=== PATIENT | female | born 1985 | race American Indian/Alaskan Native ===

== ENCOUNTER 2019-05-19 02:44 | Emergency (ER) | payer MEDICAID ==
[2019-05-19 02:58] VITALS: BP 130/85
[2019-05-19] MEDS ORDERED: SODIUM CHLORIDE 0.9% 1000 ML 1,000 ML IV ONE (03:50)
[2019-05-19] MEDS ORDERED: ONDANSETRON 4 MG/2 ML INJ IV STA (03:50)
[2019-05-19 04:21] LABS: Basophils # (Auto) 0.1 K/mm3 (0.0-0.1); Basophils % (Auto) 1.6 % (0.0-1.8); Eosinophils # (Auto) 0.1 K/mm3 (0.0-0.4); Eosinophils % (Auto) 1.4 % (0.0-4.3); Hematocrit 36.9 % (30.3-42.9); Hemoglobin 12.6 gm/dl (10.1-14.3); Lymphocytes # (Auto) 1.5 K/mm3 (1.2-5.4); Lymphocytes % (Auto) 31.6 % (13.4-35.0); Mean Corpuscular HGB Conc 34 % (30-34); Mean Corpuscular Volume 89 fl (79-97); Monocytes # (Auto) 0.4 K/mm3 (0.0-0.8); Monocytes % (Auto) 7.5 % (0.0-7.3); Platelet Count 386 K/mm3 (140-440); Red Blood Count 4.12 M/mm3 (3.65-5.03); Red Cell Distribution Width 13.8 % (13.2-15.2)
[2019-05-19 04:32] LABS: BUN/Creatinine Ratio 10; Blood Urea Nitrogen 6 mg/dL (7-17); Calcium 9.4 mg/dL (8.4-10.2); Hemolysis Index 18
[2019-05-19] MEDS ORDERED: diphenhydrAMINE 50 MG/ML VIAL IV STA (05:58)
[2019-05-19] MEDS ORDERED: METOCLOPRAMIDE 10 MG/2 ML INJ IV STA (05:58)
--- NOTE | 2019-05-19 07:17 | Emergency Department Report ---
ED General Adult HPI - General Chief complaint: Dizziness Stated complaint: DIZZY NAUSEA CHILLS Time Seen by Provider: 05/19/19 03:50 Source: patient Mode of arrival: Ambulatory Limitations: No Limitations - History of Present Illness Initial comments: 33-year-old obese Afro-Kitt[place] female presents emergency department complaining of a few day history of nausea and associated with dizziness. Patient states she has a 10-year IUD and reports no abdominal pain, no fever, chills, sweats no chest pain or palpitations no hemoptysis no hematemesis no hematochezia. States that the symptoms get worse when she goes from sit to stand she reports no new medications no ear pain no no tinnitus. -: Gradual Radiation: non-radiation Consistency: constant Improves with: none Worsens with: none Associated Symptoms: denies other symptoms, nausea/vomiting. denies: confusion, chest pain, cough, diaphoresis, loss of appetite, malaise, syncope - Related Data Previous Rx's Medication Instructions Recorded Last Taken Type Pantoprazole [Protonix TAB] 40 mg PO BID #30 tablet 02/01/18 Unknown Rx traMADoL [Ultram] 50 mg PO Q6HR PRN #14 tablet 02/01/18 Unknown Rx Doxylamine Succinate/Vit B6 1 each PO Q8HR #20 tablet. 05/19/19 Unknown Rx [Soni Chang 10-10 mg Tablet] Allergies Allergy/AdvReac Type Severity Reaction Status Date / Time No Known Allergies Allergy Unverified 01/30/18 01:30 ED Review of Systems ROS: Stated complaint: DIZZY NAUSEA CHILLS Other details as noted in HPI Comment: All other systems reviewed and negative ED Past Medical Hx - Past Medical History Previous Medical History?: No Hx Congestive Heart Failure: No Hx Diabetes: No Hx Asthma: No Hx COPD: No Hx HIV: No - Surgical History Past Surgical History?: No - Social History Smoking Status: Never Smoker Substance Use Type: None - Medications Home Medications: Home Medications Medication Instructions Recorded Confirmed Last Taken Type Pantoprazole [Protonix TAB] 40 mg PO BID #30 tablet 02/01/18 Unknown Rx traMADoL [Ultram] 50 mg PO Q6HR PRN #14 tablet 02/01/18 Unknown Rx Doxylamine Succinate/Vit B6 1 each PO Q8HR #20 tablet. 05/19/19 Unknown Rx [Soni Chang 10-10 mg Tablet] ED Physical Exam - General Limitations: No Limitations General appearance: alert, in no apparent distress - Head Head exam: Present: atraumatic, normocephalic - Eye Eye exam: Present: normal appearance, PERRL, EOMI Pupils: Present: normal accommodation - ENT ENT exam: Present: normal exam, mucous membranes moist - Neck Neck exam: Present: normal inspection - Respiratory Respiratory exam: Present: normal lung sounds bilaterally. Absent: respiratory distress, rhonchi, stridor, chest wall tenderness - Cardiovascular Cardiovascular Exam: Present: regular rate, normal rhythm. Absent: systolic murmur, diastolic murmur, rubs, gallop - GI/Abdominal GI/Abdominal exam: Present: soft, normal bowel sounds. Absent: distended, tenderness, guarding, rebound, diminished bowel sounds, hypoactive bowel sounds - Extremities Exam Extremities exam: Present: normal inspection, full ROM, normal capillary refill. Absent: tenderness, pedal edema - Back Exam Back exam: Present: normal inspection - Neurological Exam Neurological exam: Present: alert, oriented X3, CN II-XII intact, normal gait, reflexes normal. Absent: motor sensory deficit - Psychiatric Psychiatric exam: Present: normal affect, normal mood - Skin Skin exam: Present: warm, dry, intact, normal color. Absent: rash ED Course Vital Signs 05/19/19 02:53 Temperature 97.8 F Pulse Rate 85 Respiratory 16 Rate Blood Pressure 130/85 O2 Sat by Pulse 97 Oximetry ED Medical Decision Making - Lab Data Result diagrams: 05/19/19 03:57 05/19/19 03:57 - Medical Decision Making 33-year-old Kitt[place] female presents emerged department complaining of dizziness and nausea. She was found to be orthostatic positive and was treated with 1 L of normal saline which did significantly improve her symptomology but did not quite resolve all the nausea. She initially was tried on on Zofran she did have an IUD in the end of the was not a possibility. We did move forward with Reglan and Benadryl which significantly improved her nausea and since symptoms and move forward with a serum test which was discovered to be positive. This was a extreme shock to Ms. Huang but we did discuss in detail the need to follow-up with an ELECTRONIC TECHNOLOGIST as there are several complications that could arise from in this capacity. She is alert and oriented x3 and of sound judgment does completely understand the risk and has plans on following up with an ELECTRONIC TECHNOLOGIST in the next 1 to 2 days. Currently she is pain-free but has been advised on when to return to emergency department versus ELECTRONIC TECHNOLOGIST. Critical care attestation.: If time is entered above; I have spent that time in minutes in the direct care of this critically ill patient, excluding procedure time. ED Disposition Clinical Impression: Orthostatic dizziness, Nausea, as incidental finding Disposition: - TO HOME OR SELFCARE Is pt being admited?: No Does the pt Need Aspirin: No Condition: Stable Instructions: Acute Nausea and Vomiting (ED), Hypotension (ED) Additional Instructions: Elongated discussion with patient on the positive test and the fact of her IUD she is asymptomatic at current but she does understand the need to follow-up with normal GB Y and so that she can properly manage her current status Prescriptions: Doxylamine Succinate/Vit B6 [Soni Chang 10-10 mg Tablet] 1 each PO Q8HR #20 tablet. Referrals: SAIRA GERONIMO MD [Staff Physician] - 3-5 Days PRIMARY CARE, [Primary Care Provider] - 3-5 Days [facility] [Provider Group] - 3-5 Days
== END 2019-05-19 07:44 | disposition home or self-care (01) ==
LOC: ED 02:44
DX: R42 Dizziness and giddiness (principal); R11.0 Nausea; R68.83 Chills (without fever); Z79.899 Other long term (current) drug therapy; Z33.1 Pregnant state, incidental
CPT/HCPCS: 36415; 80048; 84703; 85025; 96361; 96374; 96375; 99283; J1200; J2405; J2765; J7030

== ENCOUNTER 2020-03-20 11:57 | Emergency (ER) | payer MEDICAID ==
[2020-03-20 12:15] VITALS: BP 151/103
[2020-03-20 13:26] LABS: Basophils # (Auto) 0.1 K/mm3 (0.0-0.1); Basophils % (Auto) 1.5 % (0.0-1.8); Eosinophils # (Auto) 0.1 K/mm3 (0.0-0.4); Eosinophils % (Auto) 2.1 % (0.0-4.3); Hematocrit 37.6 % (30.3-42.9); Hemoglobin 12.5 gm/dl (10.1-14.3); Lymphocytes # (Auto) 1.1 K/mm3 (1.2-5.4); Lymphocytes % (Auto) 23.1 % (13.4-35.0); Mean Corpuscular HGB Conc 33 % (30-34); Mean Corpuscular Volume 83 fl (79-97); Monocytes # (Auto) 0.2 K/mm3 (0.0-0.8); Platelet Count 463 K/mm3 (140-440); Red Blood Count 4.54 M/mm3 (3.65-5.03); Red Cell Distribution Width 16.7 % (13.2-15.2)
[2020-03-20 13:56] LABS: Alanine Aminotransferase 20 units/L (7-56); Albumin 3.8 g/dL (3.9-5); Blood Urea Nitrogen 9 mg/dL (7-17); Hemolysis Index 5
[2020-03-20 13:58] LABS: BUN/Creatinine Ratio 15
--- NOTE | 2020-03-20 14:29 | Event Note ---
ED Screening Note ED Screening Note: states has a hx of gallstones never followed up with general surgery RUQ pain N/V no diarrhea no fever no urinary symptoms no allergies to meds LNMP: 03/13/2020 This initial assessment/diagnostic orders/clinical plan/treatment(s) is/are subject to change based on patients health status, clinical progression and re- assessment by fellow clinical providers in the ED. Further treatment and workup at subsequent clinical providers discretion. Patient/guardian urged not to elope from the ED as their condition may be serious if not clinically assessed and managed. Initial orders include: labs, UA, urine preg, US abd
== END 2020-03-20 15:00 | disposition left against medical advice (07) ==
LOC: ED 11:57
DX: R10.11 Right upper quadrant pain (principal); Z53.21 Procedure and treatment not carried out due to patient leaving prior to being seen by health care provider
CPT/HCPCS: 36415; 80053; 83690; 85025

== ENCOUNTER 2021-05-11 04:10 | Emergency (ER) | payer MEDICAID ==
[2021-05-11] MEDS ORDERED: ONDANSETRON 4 MG/2 ML INJ IV ONE ×2 (05:54→07:30)
[2021-05-11] MEDS ORDERED: SODIUM CHLORIDE 0.9% 1000 ML 1,000 ML IV ONE (05:54)
[2021-05-11 06:29] LABS: Basophils % (Auto) 0.5 % (0.0-1.8); Eosinophils # (Auto) 0.1 K/mm3 (0.0-0.4); Eosinophils % (Auto) 1.1 % (0.0-4.3); Hematocrit 41.1 % (30.3-42.9); Hemoglobin 13.4 gm/dl (10.1-14.3); Lymphocytes # (Auto) 1.9 K/mm3 (1.2-5.4); Lymphocytes % (Auto) 34.5 % (13.4-35.0); Mean Corpuscular HGB Conc 33 % (30-34); Mean Corpuscular Volume 90 fl (79-97); Monocytes # (Auto) 0.4 K/mm3 (0.0-0.8); Monocytes % (Auto) 7.5 % (0.0-7.3); Platelet Count 472 K/mm3 (140-440); Red Blood Count 4.58 M/mm3 (3.65-5.03); Red Cell Distribution Width 13.9 % (13.2-15.2)
[2021-05-11 06:42] LABS: Alanine Aminotransferase 15 units/L (7-56); Albumin 4.2 g/dL (3.9-5); BUN/Creatinine Ratio 8; Blood Urea Nitrogen 6 mg/dL (7-17); Calcium 8.9 mg/dL (8.4-10.2); Hemolysis Index 0
[2021-05-11] MEDS ORDERED: MORPHINE 2 MG/1 ML INJ IV ONE ×2 (07:30→08:50)
--- NOTE | 2021-05-11 07:33 | Emergency Department Report ---
ED Abdominal Pain HPI - General Chief Complaint: Abdominal Pain Stated Complaint: GALLSTONE Time Seen by Provider: 05/11/21 07:08 Source: patient Mode of arrival: Ambulatory Limitations: No Limitations - History of Present Illness Initial Comments: 35-year-old -[place]ib[place] female presents to the ER today with complaints of epigastric and right upper quadrant pain. Patient states that she believes its her gallstones flaring up. Patient states that she was diagnosed with gallstones about 2 years ago. She did see a general surgeon at the time and she states that he gave her "pills" to help and she states that it did help until recently. She states that the pain started about 3 days ago. She still has been a constant pain without any radiation. She reports associated nausea and vomiting. She denies any bowel changes, UTI symptoms, chest pain or shortness of breath. She denies any fever or chills. She denies any significant past medical history. MD Complaint: abdominal pain -: days(s) (3) - Related Data Previous Rx's Medication Instructions Recorded Last Taken Type Doxylamine Succinate/Vit B6 1 each PO Q8HR #20 tablet. 05/19/19 Unknown Rx [Soni Chang 10-10 mg Tablet] HYDROcodone/APAP 5-325 [[place] 1 each PO Q6HR PRN #10 tablet 05/11/21 Unknown Rx 5/325] Ibuprofen [Motrin] 400 mg PO Q8H PRN #30 tablet 05/11/21 Unknown Rx Ondansetron [Zofran Odt] 4 mg PO Q8HR #15 tab.rapdis 05/11/21 Unknown Rx Allergies Allergy/AdvReac Type Severity Reaction Status Date / Time No Known Allergies Allergy Verified 03/20/20 12:11 ED Review of Systems ROS: Stated complaint: GALLSTONE Other details as noted in HPI Comment: All other systems reviewed and negative Constitutional: denies: chills, fever Eyes: denies: eye pain, eye discharge, vision change Respiratory: denies: cough, shortness of breath, SOB with exertion, SOB at rest, wheezing Cardiovascular: denies: chest pain, palpitations, edema, syncope, paroxysmal nocturnal dyspnea Gastrointestinal: abdominal pain, nausea, vomiting. denies: diarrhea, constipation, hematemesis, melena, hematochezia Genitourinary: denies: urgency, dysuria, frequency, hematuria, discharge, abnormal menses, dyspareunia Musculoskeletal: denies: back pain, joint swelling, arthralgia, myalgia Skin: denies: rash, lesions, change in color, change in hair/nails, pruritus Neurological: denies: headache, weakness, numbness, paresthesias, confusion, abnormal gait, vertigo Psychiatric: denies: anxiety, depression, auditory hallucinations, visual hallucinations, homicidal thoughts, suicidal thoughts Hematological/Lymphatic: denies: easy bleeding, easy bruising ED Past Medical Hx - Past Medical History Previous Medical History?: Yes Hx Congestive Heart Failure: No Hx Diabetes: No Hx Asthma: No Hx COPD: No Hx HIV: No Additional medical history: GALL STONES - Surgical History Past Surgical History?: No - Social History Smoking Status: Never Smoker Substance Use Type: None - Medications Home Medications: Home Medications Medication Instructions Recorded Confirmed Last Taken Type Doxylamine Succinate/Vit B6 1 each PO Q8HR #20 tablet. 05/19/19 Unknown Rx [Soni Dr 10-10 mg Tablet] HYDROcodone/APAP 5-325 [[place] 1 each PO Q6HR PRN #10 tablet 05/11/21 Unknown Rx 5/325] Ibuprofen [Motrin] 400 mg PO Q8H PRN #30 tablet 05/11/21 Unknown Rx Ondansetron [Zofran Odt] 4 mg PO Q8HR #15 tab.rapdis 05/11/21 Unknown Rx ED Physical Exam - General Limitations: No Limitations General appearance: alert, in no apparent distress - Head Head exam: Present: atraumatic, normocephalic, normal inspection - Eye Eye exam: Present: normal appearance, PERRL, EOMI Pupils: Present: normal accommodation - ENT ENT exam: Present: mucous membranes moist - Neck Neck exam: Present: normal inspection, full ROM. Absent: meningismus - Respiratory Respiratory exam: Present: normal lung sounds bilaterally. Absent: respiratory distress, wheezes, rales, rhonchi - Cardiovascular Cardiovascular Exam: Present: regular rate, normal rhythm, normal heart sounds - GI/Abdominal GI/Abdominal exam: Present: soft, tenderness (Right upper quadrant epigastric). Absent: distended, guarding, rebound - Neurological Exam Neurological exam: Present: alert, oriented X3, CN II-XII intact, normal gait - Psychiatric Psychiatric exam: Present: normal affect, normal mood - Skin Skin exam: Present: intact ED Course Vital Signs 05/11/21 05/11/21 05:05 11:29 Temperature 99.2 F 98.2 F Pulse Rate 92 H 93 H Respiratory 18 16 Rate Blood Pressure 153/92 Blood Pressure 132/77 [Right] O2 Sat by Pulse 99 99 Oximetry ED Medical Decision Making - Lab Data Result diagrams: 05/11/21 05:59 05/11/21 05:59 - Radiology Data Radiology results: report reviewed Patient: MARIA DE JESUS HORTON MR#: [id number] : 1985 Acct:[id number] Age/Sex: 35 / F ADM Date: 05/11/21 Loc: ED Attending Dr: Ordering Physician: ALBERT FLORES Date of Service: 05/11/21 Procedure(s): US abdomen limited Accession Number(s): [id number] cc: ALBERT FLORES LIMITED RUQ ABDOMINAL ULTRASOUND INDICATION: Epigastric/RUQ abd pain. COMPARISON: No relevant prior imaging study available. FINDINGS: Pancreas: Visualized portions show no significant abnormality. Abdominal Aorta: No significant abnormality. IVC: No significant abnormality. Liver: The liver measures 16.1 cm in length. No significant abnormality. Normal hepatopedal blood flow in the main portal vein. Gallbladder: Multiple shadowing gallstones are identified in the gallbladder. No abnormal distention or wall thickening.. Bile ducts: No significant abnormality. Common bile duct measures 2.2 mm. Right kidney: No significant abnormality visualized. Free fluid: None. Additional Findings: None. IMPRESSION: Cholelithiasis but no evidence for acute cholecystitis.. Signer Name: Leon Paula Jr, MD Signed: 05/11/2021 8:33 AM Workstation Name: [id number] Transcribed By: TTR Dictated By: LEON PAULA JR, MD Electronically Authenticated By: LEON PAULA JR, MD Signed Date/Time: 05/11/21832 DD/ 1 TD/TT: - Medical Decision Making 35-year-old -[place] female presents to the ER today with complaints of epigastric and right upper quadrant pain. Patient states that she believes its her gallstones flaring up. Patient states that she was diagnosed with gallstones about 2 years ago. She did see a general surgeon at the time and she states that he gave her "pills" to help and she states that it did help until recently. She states that the pain started about 3 days ago. She still has been a constant pain without any radiation. She reports associated nausea and vomiting. She denies any bowel changes, UTI symptoms, chest pain or shortness of breath. She denies any fever or chills. She denies any significant past medical history. 0732: Patient has been in the ER now for 3 hours prior to me seeing her and evaluated her. Standing orders of the labs and IV fluids were ordered. CBC and CMP shows no acute abnormality. Urinalysis and hCG is pending. At the time of my evaluation patient reports her pain to be a 5 out of 10. She still does have some tenderness in the right upper quadrant and epigastric area. We will order a ultrasound gallbladder to further evaluate. After receiving the 2 doses of morphine, patient reported that it did not help with pain, seem to have made it worse. Patient was tearful and crying and so she was given a dose of IV Toradol and Ativan after which patient had calmed down significantly and reported improvement of her pain. Patient ultrasound gallbladder shows that she has gallstones but no evidence of acute cholecystitis. She does not have a surgical abdominal exam. CT scan with IV contrast not indicated. Emergent surgical consult or admission not indicated at this time. Repeat vital signs are stable. Discussed results with patient and she will be given referral to surgery for outpatient follow-up. Gallbladder eating plan also discussed with patient. She will also be given medication for nausea vomiting and pain. She expressed understanding for instructions and agree with plan. Patient was stable at time of discharge. Critical care attestation.: If time is entered above; I have spent that time in minutes in the direct care of this critically ill patient, excluding procedure time. ED Disposition Clinical Impression: Cholelithiasis Disposition: 01 HOME / SELF CARE / HOMELESS Is pt being admited?: No Does the pt Need Aspirin: No Condition: Stable Instructions: Cholelithiasis, [id number]-Swdy, Gallbladder Eating Plan, Abdominal Pain (ED) Additional Instructions: I recommend that you take the hydrocodone and ibuprofen to help with pain. Take the Zofran to help with any nausea vomiting. Most importantly you need to follow the gallbladder eating plan and avoid foods high in fat and fried foods or greasy foods. Also you will need to follow-up with general surgery as soon as you can, a general surgeon will be listed for you in the discharge instructions, recommend that you call to set up an appointment as soon as possible for discussing getting your gallbladder out. Return to the ER if at any point your symptoms changes or worsens in any way. Prescriptions: Ibuprofen [Motrin] 400 mg PO Q8H PRN #30 tablet PRN Reason: Pain , Severe (7-10) HYDROcodone/APAP 5-325 [[place] 5/325] 1 each PO Q6HR PRN #10 tablet PRN Reason: Pain Ondansetron [Zofran Odt] 4 mg PO Q8HR #15 tab.rapdis Referrals: LUIS DANIEL DAMON MD [Staff Physician] - 3-5 Days BONI FOSTER MD [Staff Physician] - 3-5 Days (General surgeon ) Forms: Work/School Release Form(ED) Time of Disposition: 10:35
--- NOTE | 2021-05-11 08:38 | Ultrasound Report ---
LIMITED RUQ ABDOMINAL ULTRASOUND INDICATION: Epigastric/RUQ abd pain. COMPARISON: No relevant prior imaging study available. FINDINGS: Pancreas: Visualized portions show no significant abnormality. Abdominal Aorta: No significant abnormality. IVC: No significant abnormality. Liver: The liver measures 16.1 cm in length. No significant abnormality. Normal hepatopedal blood fl ow in the main portal vein. Gallbladder: Multiple shadowing gallstones are identified in the gallbladder. No abnormal distention or wall thickening.. Bile ducts: No significant abnormality. Common bile duct measures 2.2 mm. Right kidney: No significant abnormality visualized. Free fluid: None. Additional Findings: None. IMPRESSION: Cholelithiasis but no evidence for acute cholecystitis.. Signer Name: Leon Paula Jr, MD Signed: 05/11/2021 8:33 AM Workstation Name: [id number]
[2021-05-11] MEDS ORDERED: FAMOTIDINE 20 MG TAB PO ONE (08:50)
[2021-05-11] MEDS ORDERED: LORazepam 2 MG/ML VIAL IV ONE (09:15)
[2021-05-11] MEDS ORDERED: KETOROLAC 30 MG/1 ML INJ IV ONE (09:15)
[2021-05-11 11:30] VITALS: BP 132/77
== END 2021-05-11 11:00 | disposition home or self-care (01) ==
LOC: ED 04:10
DX: K80.20 Calculus of gallbladder without cholecystitis without obstruction (principal); Z79.899 Other long term (current) drug therapy
CPT/HCPCS: 36415; 76705; 80053; 83690; 84703; 85025; 96361; 96374; 96375; 96376; 99284; J1885; J2060; J2270; J2405; J7030; Q0162

== ENCOUNTER 2021-05-22 08:25 | Day surgery (SDC) | payer MEDICAID ==
[2021-05-22] MEDS ORDERED: LACTATED RINGERS 1,000 ML ONE ×2 (08:48→13:07)
--- NOTE | 2021-05-22 09:44 | Anesthesia Day of Surgery ---
Anesthesia Day of Surgery - Day of Surgery Patient Examined: Yes Patient H&P Reviewed: Yes Patient is NPO: Yes
--- NOTE | 2021-05-22 09:48 | Anesthesia Consultation ---
Anesthesia Consult and Med Hx Date of service: 05/22/21 - Airway Anesthetic Teeth Evaluation: Good (Braces) ROM Head & Neck: Adequate Mental/Hyoid Distance: Adequate Mallampati Class: Class II Intubation Access Assessment: Good - Pre-Operative Health Status ASA Pre-Surgery Classification: ASA2 Proposed Anesthetic Plan: General - Pulmonary Hx Smoking: No Hx Asthma: No COPD: No Hx Pneumonia: No Hx Sleep Apnea: No (OTILIO PRE SCREEN LOW RISK) - Cardiovascular System Hx Hypertension: No - Central Nervous System Hx Psychiatric Problems: No - Gastrointestinal Hx Gastroesophageal Reflux Disease: No - Endocrine Hx End Stage Renal Disease: No - Hematic Hx Anemia: No Hx Sickle Cell Disease: No - Other Systems Hx Cancer: No Hx Obesity: Yes
[2021-05-22] MEDS ORDERED: ceFAZolin/STERILE WATER 2 GM/20 ML SYRINGE IV NR (10:00)
[2021-05-22] MEDS ORDERED: MAGNESIUM OXIDE 400 MG TAB PO SCH (10:00)
[2021-05-22] MEDS ORDERED: ONDANSETRON 4 MG/2 ML INJ IV PRN (10:00)
[2021-05-22] MEDS ORDERED: LACTATED RINGERS 1,000 ML IV SCH (10:00)
[2021-05-22] MEDS ORDERED: CELECOXIB 200 MG CAP PO NR (10:00)
[2021-05-22] MEDS ORDERED: MIDAZOLAM 2 MG/2 ML INJ IV NR (10:00)
[2021-05-22] MEDS ORDERED: ACETAMINOPHEN 500 MG TAB PO SCH (10:00)
[2021-05-22] MEDS ORDERED: HYDROmorphone 1 MG/1 ML INJ IV PRN (10:00)
[2021-05-22] MEDS ORDERED: LIDOCAINE (1%) 10 MG/1 ML VIAL 20 ML MDV ONE (11:27)
[2021-05-22] MEDS ORDERED: BUPIVACAINE/PF (0.25%) 2.5 MG/ML 30 ML VIAL INFILTRATI ONE ×2 (11:27→12:33)
[2021-05-22] MEDS ORDERED: LIDOCAINE MPF (2%) 20 MG/1 ML VIAL 5 ML ONE (11:31)
[2021-05-22] MEDS ORDERED: ROCURONIUM 50 MG/5 ML INJ IV ONE ×2 (11:31→12:27)
[2021-05-22] MEDS ORDERED: propofoL 200 MG/20 ML VIAL IV ONE (11:32)
[2021-05-22] MEDS ORDERED: HYDROmorphone 1 MG/1 ML INJ ONE (11:32)
[2021-05-22] MEDS ORDERED: ONDANSETRON 4 MG/2 ML INJ ONE (12:27)
[2021-05-22] MEDS ORDERED: KETOROLAC 30 MG/1 ML INJ ONE (12:27)
[2021-05-22] MEDS ORDERED: dexAMETHasone 20 MG/5 ML VIAL ONE (12:27)
[2021-05-22] MEDS ORDERED: LIDOCAINE (1%) 10 MG/1 ML VIAL 20 ML MDV INFILTRATI ONE (12:33)
[2021-05-22] MEDS ORDERED: GLYCOPYRROLATE 0.4 MG/2 ML INJ ONE (13:07)
[2021-05-22] MEDS ORDERED: NEOSTIGMINE 10MG/10 ML INJ MDV ONE (13:07)
--- NOTE | 2021-05-22 13:24 | Short Stay Summary ---
Short Stay Documentation Date of service: 05/22/21 - History Principal diagnosis: symptomatic cholelithiasis H&P: obtained from office - Allergies and Medications Current Medications: Allergies No Known Allergies Allergy (Verified 05/20/21 13:27) Home Medications Medication Instructions Recorded Confirmed Last Taken Type No Known Home Medications [No 05/17/21 05/17/21 Unknown History Reported Home Medications] Active Medications Acetaminophen (Acetaminophen 500 Mg Tab) 1,000 mg PO PREOP JERILYN Stop: 05/22/21 21:00 Last Admin: 05/22/21 10:03 Dose: 1,000 mg Cefazolin Sodium (Cefazolin/Sterile Water 2 Gm/20 Ml Syringe) 2 gm IV PREOP NR Stop: 05/22/21 23:00 Celecoxib (Celecoxib 200 Mg Cap) 400 mg PO PREOP NR Stop: 05/22/21 21:00 Last Admin: 05/22/21 10:03 Dose: 400 mg Hydromorphone HCl (Hydromorphone 1 Mg/1 Ml Inj) 0.25 mg IV Q10MIN PRN PRN Reason: Pain, Moderate (4-6) Stop: 05/22/21 18:00 Hydromorphone HCl (Hydromorphone 1 Mg/1 Ml Inj) 0.5 mg IV Q10MIN PRN PRN Reason: Pain , Severe (7-10) Stop: 05/22/21 18:00 Lactated Ringer's (Lactated Ringers) 1,000 mls @ 125 mls/hr IV DIRECT JERILYN Last Admin: 05/22/21 10:00 Dose: 125 mls/hr Magnesium Oxide (Magnesium Oxide 400 Mg Tab) 400 mg PO PREOP JERILYN Stop: 05/22/21 21:00 Last Admin: 05/22/21 10:03 Dose: 400 mg Methocarbamol (Methocarbamol 750 Mg Tab) 1,500 mg PO PREOP JERILYN Stop: 05/22/21 21:00 Last Admin: 05/22/21 10:03 Dose: 1,500 mg Midazolam HCl (Midazolam 2 Mg/2 Ml Inj) 2 mg IV PREOP NR Stop: 05/22/21 23:59 Last Admin: 05/22/21 10:10 Dose: 2 mg Ondansetron HCl (Ondansetron 4 Mg/2 Ml Inj) 4 mg IV ONCE PRN PRN Reason: Nausea And Vomiting Stop: 05/22/21 18:00 - Brief post op/procedure progress note Date of procedure: 05/22/21 Pre-op diagnosis: symptomatic cholelithiasis Post-op diagnosis: same Procedure: robotic assisted lap cholecystectomy Anesthesia: GETA, local Findings: distended gallbladder with large stones and adhesions to omentum Surgeon: MARCELLE THURMAN Dental Practice Manager: MINO LIVINGSTON Estimated blood loss: minimal Pathology: list (gallbladder) Specimen disposition: to lab Condition: stable - Hospital course Hospital course: Pt observed in PACU and discharged to home in stable condition - Disposition Condition at discharge: Good Disposition: 01 HOME / SELF CARE / HOMELESS Short Stay Discharge Plan Activity: other (no heavy lifting) Diet: low fat Wound: open to air, per your surgeon's advice Additional Instructions: SEE PRINTED DISCHARGE INSTRUCTIONS Follow up with: Argelia ESTEVES [Other] - 7 Days MARCELLE THURMAN DO [Staff Physician] - 14 Days Prescriptions: oxyCODONE /ACETAMINOPHEN [Percocet 5/325] 1 tab PO Q6HR PRN #10 tablet PRN Reason: Pain , Severe (7-10)
[2021-05-22] MEDS: HYDROmorphone 1 MG/1 ML INJ IV PRN ×2 (13:45→14:00)
[2021-05-22] MEDS ORDERED: oxyCODONE /ACETAMINOPHEN 5-325MG TAB PO ONE (14:30)
[2021-05-22] MEDS ORDERED: oxyCODONE /ACETAMINOPHEN 5-325MG TAB ONE (14:40)
--- NOTE | 2021-05-22 15:05 | Operative Report ---
Operative Report Operative Report: Date of procedure: 05/22/21 Pre-op diagnosis: symptomatic cholelithiasis Post-op diagnosis: same Procedure: robotic assisted lap cholecystectomy Anesthesia: GETA, local Findings: distended gallbladder with large stones and adhesions to omentum Surgeon: MARCELLE THURMAN Container Maker: MINO LIVINGSTON Estimated blood loss: minimal Pathology: list (gallbladder) Specimen disposition: to lab Condition: stable Hospital course: Pt observed in PACU and discharged to home in stable condition Condition at discharge: Good Disposition: 01 HOME / SELF CARE / HOMELESS HPI an indication: 35-year-old female who was referred to the surgery clinic by the emergency room for evaluation of gallstones and abdominal pain. Pertinent lab data and imaging were reviewed and patient was found to have symptomatic cholelithiasis and cholecystectomy was recommended. All risks, benefits, alternatives to surgery were discussed with the patient and questions answered. Consent was signed. Procedure in detail: The patient was identified in the preoperative area and taken back to the operating room, placed on the operating room table in supine position. After anesthesia was induced, the abdomen was prepped and draped in usual sterile fashion and timeout was performed. Local anesthetic was infiltrated into all of the skin incision sites. Using a 11 blade a stab incision was at the umbilicus through which a Veress needle was inserted. The position of the veress needle was confirmed with the saline drop test but abdominal pressures were high and therefore the Veress needle was withdrawn. A stab incision was made in the left upper quadrant at Bhandari's point through which a Veress needle was inserted. The Veress needle position was confirmed using the saline drop test and the abdomen was then insufflated to 15 mmHg without incident. An incision was then made just above and to the right of the umbilicus using an 11 blade. A 5mm Optiview trocar was placed through this incision. The abdomen was then inspected and there was no underlying injury to any of the abdominal contents and the Veress needle was withdrawn. There were adhesions from the omentum to the anterior abdominal wall just inferior to the umbilicus. An additional right upper quadrant, left upper quadrant, and left lateral abdominal 8 mm robotic trocars were placed under direct visualization. The patient was placed in reverse Trendelenburg and tilted to the left. The robot was then docked in the usual fashion. A monopolar scissor was placed in arm #1, a Caudier grasper in arm #2, and a prograsp in arm #3. The surgeon transferred to the console. The gallbladder was visualized and there were adhesions from the omentum to the gallbladder. The gallbladder was distended. The gallbladder fundus was grasped and retracted cephalad and above the liver. The liver is fatty. The adhesions were dissected carefully using a combination of blunt dissection and hook electrocautery. The cystic duct and artery were then carefully dissected and the critical view obtained. The cystic duct and artery were the only two structures seen entering the gallbladder. Two hemolock clips were then placed on the proximal aspect of the cystic duct and one clip distally. The cystic duct was transected in between the clips using EndoShears by the instructional assistant. The cystic artery was diminutive and was ligated using electrocautery. The gallbladder was dissected from the liver bed using hook electrocautery. The gallbladder was placed in the right upper quadrant and the liver bed and gallbladder fossa examined. Hemostasis was very carefully ensured. There was no active bleeding or bile leakage seen. The clips on the cystic duct and artery were intact. The robot was then undocked and the surgeon scrubbed back in. The remainder of the case was performed laparoscopically. The gallbladder was placed into a Endo Catch bag. The patient was then placed into neutral position. The gallbladder was removed via the 12 port. There were at least 2 large stones palpated in the gallbladder. 12 mm port fascia was closed with interrupted 0 Vicryl suture x2 using the Milton Gonzalez device. The remaining ports were removed under direct visualization. Skin incisions were closed with 4-0 Monocryl subcuticular stitches and skin glue. All skin incisions were once again infiltrated with local anesthetic. At the end case all sponge, instrument, sharp counts were correct 2. The patient was awoken from anesthesia, extubated, taken to PACU in stable conditio n.
--- NOTE | 2021-05-22 15:22 | Post Anesthesia Evaluation ---
- Post Anesthesia Evaluation Patient Participated: Yes Airway Patent: Yes Stable Respiratory Function: Yes Nausea/Vomiting: No Temp > 96.8F: Yes Pain Manageable: Yes Adequeate Hydration: Yes Anesthesia Complications: No Block Receding Appropriately: Not Applicable Patient on Ventilator: No
[2021-05-22 18:29] VITALS: BP 115/68
== END 2021-05-22 08:26 | disposition home or self-care (01) ==
LOC: OR 08:25
PROVIDERS: ATTEND Surgery
DX: K80.10 Calculus of gallbladder with chronic cholecystitis without obstruction (principal); E66.9 Obesity, unspecified; Z79.899 Other long term (current) drug therapy; Z98.890 Other specified postprocedural states; Z68.39 Body mass index [BMI] 39.0-39.9, adult
CPT/HCPCS: 47562; 81025; 88304; J0690; J1100; J1170; J1815; J1885; J2250; J2405; J2704; J2710; J3490; J7120; S2900; U0003